=== PATIENT | male | born 1995 | race Caucasian/White ===

== ENCOUNTER 2017-02-13 18:43 | Emergency (ER) | payer SELFPAY | END 2017-02-13 19:00 | disposition left against medical advice (07) | LOC: D.ER 18:43 | DX: Z02.9 Encounter for administrative examinations, unspecified (principal) ==

== ENCOUNTER 2017-02-14 01:53 | Emergency (ER) | payer SELFPAY | END 2017-02-14 02:35 | disposition home or self-care (01) | LOC: D.ER 01:53 | DX: N45.1 Epididymitis (principal) ==